=== PATIENT | male | born 1950 | race Two or more races ===

== ENCOUNTER 2021-09-04 11:45 | Inpatient (IN) | payer OTHER ==
[~2021-09-04] VITALS: Ht 172.7 cm; Wt 89.4 kg
[2021-09-04] MEDS ORDERED: TOPROL XL50 M1 PO (14:53)
[2021-09-04] MEDS ORDERED: TAMS0.4C PO (14:53)
[2021-09-04] MEDS ORDERED: ATORVASTATIN CA20 MG PO (14:53)
[2021-09-04] MEDS ORDERED: FUSION PLUS CA1 EACH PO (14:54)
[2021-09-08] MEDS ORDERED: FAMOTIDINE40 MG (08:02)
[2021-09-08] MEDS ORDERED: CENTRUM SILVER1 EAC1 (08:02)
[2021-09-08] MEDS ORDERED: METFORMIN HCL500 M4 (08:02)
[2021-09-08] MEDS ORDERED: WAL-ZYR10 MG (08:02)
[2021-09-08] MEDS ORDERED: PANTOPRAZOLE SO40 MG (08:02)
[2021-09-08] MEDS ORDERED: EMERGEN-C 1,01000 MG (08:03)
[2021-09-10] MEDS ORDERED: OXYC1TAB9 PO (08:48)
[2021-09-10] MEDS ORDERED: HYOSCYAMINE0.125 M1 SL (08:48)
[2021-09-10] MEDS ORDERED: INTESTINEX680 M1 PO (08:49)
== END 2021-09-10 15:35 | disposition home or self-care (01) | DRG 331 ==
LOC: O/R 09-08 05:25 → SURH 09-08 05:25 → SURG 09-08 12:31 → SURH 09-08 13:39
PROVIDERS: ADMIT Surgery; ATTEND Surgery
PROC: 07BB4ZZ Excision of Mesenteric Lymphatic, Percutaneous Endoscopic Approach (ICD-10-PCS; 2021-09-08)
PROC: 0DTF4ZZ Resection of Right Large Intestine, Percutaneous Endoscopic Approach (ICD-10-PCS; principal; 2021-09-08 07:00)
DX: C18.0 Malignant neoplasm of cecum (principal); R59.0 Localized enlarged lymph nodes; R97.0 Elevated carcinoembryonic antigen [CEA]; I11.9 Hypertensive heart disease without heart failure; N40.0 Benign prostatic hyperplasia without lower urinary tract symptoms; Z20.822 Contact with and (suspected) exposure to COVID-19